=== PATIENT | male | born 1975 | race Caucasian/White ===

== ENCOUNTER 2016-05-15 14:40 | Emergency (ER) | payer OTHER ==
[2016-05-15 16:34] VITALS: BP 134/74
[2016-05-15] MEDS ORDERED: Tetan/Diph/Pertus SYR(Tdap)* 0.5 ML SYR(BOOSTRIX) use SYR IM ONE (16:55)
--- NOTE | 2016-05-15 17:06 | UC ---
Skin Complaint HPI - HPI Summary HPI Summary: SEVERAL HOURS AGO ACCIDENTLY SLICED SMAL AREA OF SKIN FROM LEFT THUMB WITH SERRATED BREAD NIFE. LAST TETANUS SHOT WAS OVER A DECADE AGO. - History of Current Complaint Chief Complaint: UCLaceration Time Seen by Provider: 05/15/16 16:39 Stated Complaint: finger laceration Hx Obtained From: Patient Onset/Duration: Sudden Onset, Lasting Minutes, Still Present Skin Exposure Onset/Duration: Minutes Ago Onset Severity: Mild Current Severity: Mild Location: Discrete - LEFT THUMB Aggravating: Nothing Alleviating: Nothing Associated Signs & Symptoms: Positive: Negative, Drainage - DID NOT STOP BLEEDING AT THE TIME, NOW BLEEDING CONTROLLED Related History: Trauma - Allergy/Home Medications Allergies/Adverse Reactions: Allergies Allergy/AdvReac Type Severity Reaction Status Date / Time Penicillins Allergy Unknown Verified 05/15/16 16:34 Reaction Details Home Medications: Home Medications DOXYcycline CAP(*) [DOXYcycline 100MG CAP(*)] 1 BID 05/15/16 [History] Review of Systems Constitutional: Negative Skin: Other - AVULSION INJURY 0.5 X 1CM ON LEFT THUMB Eyes: Negative ENT: Negative Respiratory: Negative Cardiovascular: Negative Gastrointestinal: Negative Genitourinary: Negative Motor: Negative Neurovascular: Negative Musculoskeletal: Negative Neurological: Negative Psychological: Negative All Other Systems Reviewed And Are Negative: Yes PMH/Surg Hx/FS Hx/Imm Hx Previously Healthy: Yes Endocrine History Of: Denies: Diabetes, Thyroid Disease Cardiovascular History Of: Denies: Cardiac Disorders, Hypertension Respiratory History Of: Denies: COPD, Asthma GI/ History Of: Denies: Ulcer - Surgical History Surgical History: Yes Surgery Procedure, Year, and Place: pilonidal cyst 07/1998. vasectomy - Family History Known Family History: Negative: Blood Disorder - Social History Occupation: Employed Full-time Lives: With Family Alcohol Use: Occasionally Substance Use Type: None Smoking Status (MU): Never Smoked Tobacco Physical Exam Triage Information Reviewed: Yes Appearance: Well-Appearing, No Pain Distress, Well-Nourished Vital Signs: Initial Vital Signs Temp 98.3 F 05/15/16 16:28 Pulse 87 05/15/16 16:28 Resp 20 05/15/16 16:28 BP 134/74 05/15/16 16:28 Pulse Ox 100 05/15/16 16:28 Vital Signs Reviewed: Yes Eye Exam: Normal ENT Exam: Normal ENT: Positive: Normal ENT inspection, Hearing grossly normal, Pharynx normal, TMs normal Dental Exam: Normal Neck exam: Normal Neck: Positive: Supple, Nontender, No Lymphadenopathy Respiratory Exam: Normal Respiratory: Positive: Chest non-tender, Lungs clear, Normal breath sounds, No respiratory distress, No accessory muscle use Cardiovascular Exam: Normal Cardiovascular: Positive: RRR, No Murmur, Pulses Normal Abdominal Exam: Normal Abdomen Description: Positive: Nontender, No Organomegaly Musculoskeletal Exam: Normal Musculoskeletal: Positive: Strength Intact, ROM Intact Neurological Exam: Normal Neurological: Positive: Alert, Muscle Tone Normal Psychological Exam: Normal Psychological: Positive: Normal Response To Family Skin: Positive: Other - AVULSION INJURY 0.5 X 1CM ON LEFT THUMB Course/Dx - Differential Diagnoses - Skin Complaint Differential Diagnoses: Cellulitis, Other - AVULSION LACERATION - Diagnoses Provider Diagnoses: AVULSION INJURY 0.5 X 1CM ON LEFT THUMB; TETANUS PROPHYLAXIS Discharge - Discharge Plan Condition: Stable Disposition: HOME Patient Education Materials: Skin Avulsion (ED) Referrals: Radha Rosado MD [Primary Care Provider] -
== END 2016-05-15 17:21 | disposition home or self-care (01) ==
LOC: UCEAST 14:40
DX: S61.012A Laceration without foreign body of left thumb without damage to nail, initial encounter (principal); W26.0XXA Contact with knife, initial encounter; Y93.G1 Activity, food preparation and clean up; Y92.9 Unspecified place or not applicable; Y99.9 Unspecified external cause status; Z23 Encounter for immunization; Z88.0 Allergy status to penicillin
CPT/HCPCS: 90715; 96372; 99212; G0463